=== PATIENT | male | born 1985 | race American Indian/Alaskan Native ===

== ENCOUNTER 2016-10-10 09:43 | Emergency (ER) | payer SELFPAY ==
[2016-10-10 10:09] VITALS: BP 128/67
--- NOTE | 2016-10-10 10:43 | XRay Report ---
LEFT HAND, 3 views: History: Left hand injury. The bony architecture is intact. Bony alignment is normal. No soft tissue abnormalities are seen. The joint spaces appear preserved. IMPRESSION: Normal left hand.
--- NOTE | 2016-10-10 23:16 | Emergency Department Report ---
Entered by ABNER ISSA, acting as scribe for BREANNE PARIS NP. ED Upper Extremity Inj HPI - General Chief Complaint: Extremity Injury, Upper Stated Complaint: Finger injury Time Seen by Provider: 10/10/16 12:10 Source: patient Mode of arrival: Ambulatory Limitations: No Limitations - History of Present Illness Initial Comments: 22 y/o male presents with constant, achy, mild 3rd and 4th left digit pain after smashing his fingers in a car saucedo. Sx include numbness but pt denies fever, chills, chest pain, SOB or abd pain. Pt notes taking aleve with mild relief for Sx. No additional Sx MD Complaint: Injury to:: right (3rd and 4th digits) -: days(s) (4) Other Extremity Injury: Fingers: Left, Hand: Left Other Injuries: none Place: home Severity scale (0 -10): 4 Improves With: none Worsens With: movement of extremity Context: other (smashed fingers in saucedo of car) Associated Symptoms: denies other symptoms, numbness. denies: weakness, neck pain - Related Data Previous Rx's Medication Instructions Recorded Last Taken Type Promethazine [Phenergan] 25 mg PO Q6H PRN #20 tablet 04/29/14 Unknown Rx Sulfamethoxazole/Trimethoprim 1 each PO BID 7 Days 04/29/14 Unknown Rx [Bactrim Ds] Ibuprofen [Motrin 800 MG tab] 800 mg PO Q8HR PRN #30 tablet 10/10/16 Unknown Rx Allergies Allergy/AdvReac Type Severity Reaction Status Date / Time No Known Allergies Allergy Unverified 04/29/14 11:40 ED Review of Systems Comment: All other systems reviewed and negative Constitutional: denies: chills, fever Respiratory: denies: cough, shortness of breath Cardiovascular: other (bilateral radial and brachial pulses are 2+). denies: chest pain, edema Gastrointestinal: denies: abdominal pain, nausea, vomiting Skin: other (mild left 3rd and 4th digit pain) Neurological: numbness (in affected digits). denies: headache, weakness ED Past Medical Hx - Surgical History Past Surgical History?: No - Social History Smoking Status: Current Every Day Smoker Substance Use Type: Alcohol - Medications Home Medications: Home Medications Medication Instructions Recorded Confirmed Last Taken Type Promethazine [Phenergan] 25 mg PO Q6H PRN #20 tablet 04/29/14 Unknown Rx Sulfamethoxazole/Trimethoprim 1 each PO BID 7 Days 04/29/14 Unknown Rx [Bactrim Ds] Ibuprofen [Motrin 800 MG tab] 800 mg PO Q8HR PRN #30 tablet 10/10/16 Unknown Rx ED Physical Exam - General Limitations: No Limitations General appearance: alert, in no apparent distress - Head Head exam: Present: atraumatic, normocephalic - Eye Eye exam: Present: normal appearance, PERRL, EOMI - ENT ENT exam: Present: normal exam, normal orophraynx, mucous membranes moist - Neck Neck exam: Present: normal inspection, full ROM. Absent: tenderness, meningismus, lymphadenopathy, thyromegaly - Respiratory Respiratory exam: Present: normal lung sounds bilaterally. Absent: respiratory distress, wheezes, rales, rhonchi, stridor - Cardiovascular Cardiovascular Exam: Present: regular rate, normal rhythm, normal heart sounds, other (bilateral brachial and radial pulses 2+). Absent: systolic murmur, diastolic murmur, rubs, gallop - GI/Abdominal GI/Abdominal exam: Present: soft, normal bowel sounds. Absent: distended, tenderness, guarding, rebound, rigid - Extremities Exam Extremities exam: Present: full ROM, normal capillary refill. Absent: tenderness, pedal edema, joint swelling - Expanded Upper Extremity Exam Left Upper Arm exam: Present: normal inspection, full ROM. Absent: tenderness Elbow exam: Present: normal inspection, full ROM. Absent: tenderness Forearm Wrist exam: Present: normal inspection, full ROM. Absent: tenderness Hand Wrist exam: Present: full ROM, tenderness (3rd and 4th distal phalanx), ecchymosis. Absent: swelling, abrasion, laceration, deformity, crepidus, dislocation, erythema, amputation, nail avulsion, subungual hematoma Neuro motor exam: Present: wrist extension intact, thumb opposition intact, thumb IP flexion intact, thumb adduction intact, fingers 2-5 abduction intact Neurosensory exam: Present: 2-point discrimination, radial nerve intact, ulnar nerve intact, median nerve intact Vascular: Present: normal capillary refill, radial pulse (2+), brachial pulse (2 +), ulnar pulse (2+). Absent: vascular compromise, Pallo, pulse deficit radial art, pulse deficit ulnar art, pulse deficit brachial art - Back Exam Back exam: Present: normal inspection, full ROM. Absent: tenderness, CVA tenderness (R), CVA tenderness (L), paraspinal tenderness, vertebral tenderness - Neurological Exam Neurological exam: Present: alert, oriented X3, CN II-XII intact, normal gait, reflexes normal. Absent: motor sensory deficit - Psychiatric Psychiatric exam: Present: normal affect, normal mood - Skin Skin exam: Present: warm, dry, intact, normal color, ecchymosis, other ( ecchymosis to left 3rd and 4th digits. PIP and DIP joints have full ROM). Absent: rash ED Course Vital Signs 10/10/16 10:05 Temperature 98.6 F Pulse Rate 90 Respiratory 20 Rate Blood Pressure 128/67 O2 Sat by Pulse 100 Oximetry ED Medical Decision Making - Radiology Data Radiology results: image reviewed LEFT HAND, 3 views: History: Left hand injury. The bony architecture is intact. Bony alignment is normal. No soft tissue abnormalities are seen. The joint spaces appear preserved. IMPRESSION: Normal left hand. - Medical Decision Making During the course of ED, imaging study was ordered, which showed no fractures. Patient was sent home with a prescription for Ibuprofen and instructed to follow up with the selective referral given at discharge. He verbalized understanding - Differential Diagnosis Left Fingers Fracture, Left Finger Sprain ED Disposition Clinical Impression: Finger injury Disposition: DISCHARGED TO HOME OR SELFCARE Is pt being admited?: No Does the pt Need Aspirin: No Condition: Stable Instructions: Finger Sprain (ED) Additional Instructions: Take medication as directed. Follow up with the selective referral given at discharge Prescriptions: Ibuprofen [Motrin 800 MG tab] 800 mg PO Q8HR PRN #30 tablet PRN Reason: Pain Referrals: PRIMARY CAREMD [Primary Care Provider] - 3-5 Days KYA ZAIDI MD [Staff Physician] - 3-5 Days Forms: Work/School Release Form(ED) Time of Disposition: 12:37 This documentation as recorded by the LUIS MANUEL rodríguez RYAN,accurately reflects the service I personally performed and the decisions made by [place] villafana SABRENA D, NP.
== END 2016-10-10 13:04 | disposition home or self-care (01) ==
LOC: ED 09:43
DX: S60.032A Contusion of left middle finger without damage to nail, initial encounter (principal); S60.042A Contusion of left ring finger without damage to nail, initial encounter; F17.200 Nicotine dependence, unspecified, uncomplicated; W23.0XXA Caught, crushed, jammed, or pinched between moving objects, initial encounter; Y93.89 Activity, other specified; Y99.8 Other external cause status; Y92.098 Other place in other non-institutional residence as the place of occurrence of the external cause
CPT/HCPCS: 99283